=== PATIENT | male | born 1945 | race Caucasian/White ===

== ENCOUNTER 2018-03-27 06:47 | Day surgery (SDC) | payer MEDICARE ==
[~2018-03-27] VITALS: Ht 170.2 cm; Wt 96.9 kg
[~2018-03-27 06:47] MED LIST: ADV250 IH; APIX2.5T PO; ATOR20TA PO; AUD IH; BISO5TAB2 PO; CLON1TAB5 PO; CYAN1000I IM; DULO60CA63 PO; FLUO20CA30 PO; FURO40TA5 PO; FURO40TA7 PO; GABA-318 PO; LACT10SO PO; LISI-613 PO; MEMA10TA20 PO; PRED20TA3 PO; SPIR25TA PO; TAMS0.4C32 PO; TEST200V21 IM; THIAM100TB PO; TIOT18CA3 IH; TOPI50TA PO; TRAM50TA4 PO; TRAZ-185 PO; TRIA15CR48 TP; TYL3 PO
[2018-03-27 07:42] VITALS: BP 140/82
[2018-03-27] MEDS: SODIUM CHLORIDE 0.9% 1000ML 1,000 ML IV ONE (08:20)
[2018-03-27 09:23] VITALS: BP 142/92
== END 2018-03-27 10:10 | disposition home or self-care (01) ==
LOC: DAH 06:47
PROVIDERS: ATTEND Internal Medicine
DX: K63.5 Polyp of colon (principal); K62.1 Rectal polyp; K57.30 Diverticulosis of large intestine without perforation or abscess without bleeding; K21.0 Gastro-esophageal reflux disease with esophagitis; K29.80 Duodenitis without bleeding; K31.89 Other diseases of stomach and duodenum; D50.9 Iron deficiency anemia, unspecified; I10 Essential (primary) hypertension; E78.00 Pure hypercholesterolemia, unspecified; E11.9 Type 2 diabetes mellitus without complications; M19.90 Unspecified osteoarthritis, unspecified site; I25.10 Atherosclerotic heart disease of native coronary artery without angina pectoris; F41.9 Anxiety disorder, unspecified; F32.9 Major depressive disorder, single episode, unspecified; Z86.010 Personal history of colon polyps; I26.99 Other pulmonary embolism without acute cor pulmonale; Z98.42 Cataract extraction status, left eye; Z98.890 Other specified postprocedural states; Z79.899 Other long term (current) drug therapy; Z79.52 Long term (current) use of systemic steroids; Z80.0 Family history of malignant neoplasm of digestive organs
CPT/HCPCS: 82948; 93005; A4606; J7030